=== PATIENT | male | born 1995 | race Caucasian/White ===

== ENCOUNTER 2021-11-03 23:24 | Emergency (ER) | payer MEDICAID ==
[~2021-11-03] VITALS: Ht 172.7 cm; Wt 77.0 kg
[2021-11-04] MEDS ORDERED: METHYLPREDNISOLONE SOD SUCC 125 MG/2 ML VIAL IV ONE (00:30)
[2021-11-04] MEDS ORDERED: EPINEPHRINE 1:1000 1 MG/ML AMP IM ONE (00:30)
[2021-11-04] MEDS ORDERED: TRANEXAMIC ACID 1,000 MG/10 ML IV ONE (00:30)
[2021-11-04] MEDS ORDERED: FAMOTIDINE 20MG/2ML VIAL IV ONE (00:30)
[2021-11-04] MEDS ORDERED: DIPHENHYDRAMINE 50MG/ML VIAL IV ONE (00:30)
[2021-11-04 02:00] VITALS: BP 125/77
== END 2021-11-04 03:57 | disposition home or self-care (01) ==
LOC: ER 23:24
DX: T78.3XXA Angioneurotic edema, initial encounter (principal); F32.9 Major depressive disorder, single episode, unspecified
CPT/HCPCS: 96372; 96374; 96375; 99284; J1200; J2930; J3490

== ENCOUNTER 2021-11-08 12:01 | Emergency (ER) | payer MEDICAID ==
[~2021-11-08] VITALS: Ht 170.2 cm; Wt 78.0 kg
[2021-11-08] MEDS ORDERED: TETANUS, DIPHTHERIA, PERTUSSIS VAC/PF 0.5ML (>10YR OLD) IM ONE (14:30)
[2021-11-08] MEDS ORDERED: IBUPROFEN 600MG TABLET PO ONE (14:30)
[2021-11-08] MEDS ORDERED: CLIN-116 MT (14:40)
[2021-11-08 15:02] VITALS: BP 147/97
== END 2021-11-08 15:09 | disposition home or self-care (01) ==
LOC: ER 12:01
DX: L03.012 Cellulitis of left finger (principal); F32.9 Major depressive disorder, single episode, unspecified
CPT/HCPCS: 90471; 90715; 99283